=== PATIENT | male | born 1965 ===

== ENCOUNTER 2018-05-11 08:22 | Day surgery (SDC) | payer OTHER ==
[2018-05-04 10:52] VITALS: BMI 27.6
[~2018-05-11 08:22] MED LIST: ceFAZolin 1 gm FROZEN Premix 2 GM/100 ML ML IVPB ONE
[2018-05-11] MEDS ORDERED: Midazolam 2 MG/2 ML VIAL ONE (10:22)
[2018-05-11] MEDS ORDERED: Propofol 10 mg/ml Inj (20 ML) ONE (10:22)
--- NOTE | 2018-05-11 12:05 | PCM.SURG1 ---
Surgeon's Initial Post Op Note - Surgeon's Notes Surgeon: Dr. Guadalupe Histologist Technologist: Dr. Arteaga PGY-4 Type of Anesthesia: General LMA Pre-Operative Diagnosis: Left inguinal hernia Operative Findings: Left direct inguinal hernia Post-Operative Diagnosis: Left inguinal hernia Operation Performed: Left inguinal hernia repair with mesh Specimen/Specimens Removed: lipoma of cord Estimated Blood Loss: EBL {In ML}: 5 Blood Products Given: N/A Drains Used: No Drains Post-Op Condition: Good Date of Surgery/Procedure: 05/11/18 Time of Surgery/Procedure: 11:00
[2018-05-11] MEDS: HYDROmorphone 0.5 mg/0.5 ml ISec IVP PRN ×2 (12:48→13:40)
[2018-05-11] MEDS ORDERED: Lactated Ringer's 1,000 ML IV ONE (13:37)
[2018-05-11 14:45] VITALS: O2SAT 97
[2018-05-11] MEDS ORDERED: Oxycodone/Acetaminophen 5/325 mg Tab PO STA (15:52)
[2018-05-11] MEDS ORDERED: Oxycodone/Acetaminophen 5/325 mg Tab ONE (15:54)
[2018-05-11 17:49] VITALS: BP 126/75; PULSE 80; RESP 18; TEMP 98.2
--- NOTE | 2018-05-13 02:03 | OP ---
Copied To: Belen Guadalupe MD Attending MD: Belen Guadalupe MD PROCEDURE DATE: 05/11/2018 SURGEON: Belen Guadalupe MD MANAGER COMPLIANCE: Cecilia Arteaga DO TYPE OF ANESTHESIA: General. PREOPERATIVE DIAGNOSIS: Left inguinal hernia. POSTOPERATIVE DIAGNOSIS: Direct left inguinal hernia. PROCEDURE: Left inguinal hernia repair with mesh. DESCRIPTION OF PROCEDURE: With the patient in the supine position under adequate general anesthesia, the left groin was prepped and draped in the usual sterile manner. A sloping incision was made in the left upper groin crease taken down through the subcutaneous tissue. The external oblique layer was identified. There was noted to be thinning of the medial portion of the external oblique, and the external oblique was incised from the internal inguinal ring to the external inguinal ring. The spermatic cord was enlarged and fatty, and the cord was dissected as it passed over the pubic tubercle and elevated over the Baljeet drain. Examination of the groin noted a large fatty bulge emerging medial to the cord from the inguinal floor representing a direct inguinal hernia. The spermatic cord was dissected and a moderately sized lipoma was freed from the underlying cord structures and dissected back towards the internal inguinal ring. The lipoma was suture ligated with 0 Vicryl at the level of the internal ring and removed. No actual peritoneal sac was identified. The cord was then completely dissected off the direct hernia which appeared to contain only preperitoneal fat and was bulging through a 2-cm deficit just medial to the internal inguinal ring. The herniated material was reduced well beneath the transversalis level and a size extra large ProLoop plug was positioned deep to the transversalis level within the hernia defect noted to maintain the reduction well. The plug was sutured beneath the transversalis with interrupted sutures of 2-0 Prolene. The transversalis edge and the shelving edge of the inguinal ligament were then identified and the flat portion of the mesh was trimmed to approximate the inguinal floor and positioned beneath the spermatic cord. It was sutured medially at the area of the pubic tubercle and then interrupted sutures were used to fix the mesh superiorly to the transversalis and inferiorly to the shelving edge of the inguinal ligament encompassing the previously placed sutures used for the plug. Sutures were taken lateral to the internal ring to approximate the tails and leave a smaller internal ring. The mesh was positioned to lay flat beneath the external oblique. The external oblique was then reapproximated with running suture of 0 Vicryl. The subcutaneous layers were approximated with a few interrupted sutures of 3-0 Vicryl and closure was performed with running subcuticular suture of 4-0 Monocryl and Steri-Strips. Dry sterile dressing was applied. The patient tolerated the procedure well and transferred to recovery room in stable condition. Estimated blood loss for the procedure was 5 mL. Belen Guadalupe MD [facility]
== END 2018-05-11 17:00 | disposition home or self-care (01) ==
LOC: C.SDS 08:22
PROVIDERS: ATTEND Specialist
DX: K40.90 Unilateral inguinal hernia, without obstruction or gangrene, not specified as recurrent (principal)
CPT/HCPCS: 49505; 82948; 88302; C1781; J0690; J1170; J1885; J2001; J2250; J2405; J2704; J3010; J7120